=== PATIENT | female | born 1930 | race Caucasian/White ===

== ENCOUNTER → 2018-12-28 | Outpatient (CLI) | payer MEDICARE, OTHER | LOC: M.ULTRA 12-22 17:53 | DX: Z12.31 Encounter for screening mammogram for malignant neoplasm of breast (principal); I70.0 Atherosclerosis of aorta; K76.89 Other specified diseases of liver; Z88.8 Allergy status to other drugs, medicaments and biological substances ==

== ENCOUNTER → 2019-01-04 | Outpatient (CLI) | payer MEDICARE, OTHER | LOC: M.MRI 12-30 13:59 | DX: M47.896 Other spondylosis, lumbar region (principal); M48.07 Spinal stenosis, lumbosacral region; M51.26 Other intervertebral disc displacement, lumbar region; L05.91 Pilonidal cyst without abscess; M89.38 Hypertrophy of bone, other site; M50.123 Cervical disc disorder at C6-C7 level with radiculopathy; M48.02 Spinal stenosis, cervical region ==

== ENCOUNTER 2020-08-10 15:32 | Emergency (ER) | payer MEDICARE, OTHER ==
[~2020-08-10] VITALS: Ht 172.7 cm; Wt 72.1 kg
[2020-08-10] MEDS ORDERED: HYDROCHLOROTH12.5 M1 PO (15:46)
[2020-08-10] MEDS ORDERED: ATENOLOL 25 MG25 M1 (15:46)
[2020-08-10] MEDS ORDERED: LIPITOR10 MG PO (15:46)
[2020-08-10] MEDS ORDERED: KEFLEX500 M1 PO (17:05)
[2020-08-10] MEDS ORDERED: CENTANY30 GM TOP (17:05)
[2020-08-10 17:38] VITALS: BP 141/60
== END 2020-08-10 17:59 | disposition home or self-care (01) ==
LOC: M.ERS 15:32
DX: L97.529 Non-pressure chronic ulcer of other part of left foot with unspecified severity (principal); R23.8 Other skin changes; I10 Essential (primary) hypertension; Z96.641 Presence of right artificial hip joint; Z96.651 Presence of right artificial knee joint; Z79.899 Other long term (current) drug therapy